=== PATIENT | female | born 1965 | race American Indian/Alaskan Native ===

== ENCOUNTER 2018-02-26 22:11 | Emergency (ER) | payer SELFPAY ==
--- NOTE | 2018-02-27 03:50 | Emergency Department Report ---
ED General Adult HPI - General Chief complaint: Skin/Abscess/Foreign Body Stated complaint: SWELLING LEFT SIDE FACE Time Seen by Provider: 02/27/18 03:07 Source: patient Mode of arrival: Ambulatory Limitations: No Limitations - History of Present Illness Initial comments: 52-year-old -[place] female comes in today stating that she is having swelling to her left side of her face that occurred about an hour prior to arrival. Patient reports she was using swimmer's eardrops. She reports that it feels painful burning intermittent on the left side. Patient reports she vomited 1 yesterday she is nauseated burning when drinking or swallowing. -: hour(s) Location: face Severity scale (0 -10): 8 Quality: burning Consistency: intermittent Improves with: none Worsens with: other (swallowing drinking) Associated Symptoms: fever/chills, nausea/vomiting Treatments Prior to Arrival: none - Related Data Previous Rx's Medication Instructions Recorded Last Taken Type HYDROcodone/APAP 7.5-325 [[place] 1 each PO Q8HR PRN #15 tablet 12/14/15 Unknown Rx 7.5/325] ALBUTEROL Inhaler [Proair] 2 puff IH QID PRN #1 inhalation 10/05/16 Unknown Rx Levofloxacin [Levaquin] 750 mg PO QDAY #9 tablet 10/05/16 Unknown Rx guaiFENesin/CODEINE [Robitussin AC] 10 ml PO QHS PRN #70 oral.liqd 10/05/16 Unknown Rx predniSONE [Deltasone] 50 mg PO QDAY #5 tab 10/05/16 Unknown Rx HYDROcodone/APAP 5-325 [[place] 1 each PO Q6HR PRN #8 tablet 10/10/16 Unknown Rx 5/325] Ibuprofen [Motrin 800 MG tab] 800 mg PO Q8HR #15 tablet 02/27/18 Unknown Rx Allergies Allergy/AdvReac Type Severity Reaction Status Date / Time Penicillins Allergy Rash Verified 10/10/16 12:00 ED Review of Systems ROS: Stated complaint: SWELLING LEFT SIDE FACE Other details as noted in HPI Constitutional: fever (2 days ago) Eyes: denies: eye pain, eye discharge, vision change ENT: ear pain (2 days ago ) Respiratory: denies: cough, shortness of breath, wheezing Cardiovascular: denies: chest pain, palpitations Endocrine: no symptoms reported Gastrointestinal: nausea, vomiting (times one). denies: abdominal pain, diarrhea Genitourinary: denies: urgency, dysuria, discharge Musculoskeletal: denies: back pain, joint swelling, arthralgia Skin: denies: rash, lesions Neurological: denies: headache, weakness, paresthesias Psychiatric: denies: anxiety, depression Hematological/Lymphatic: denies: easy bleeding, easy bruising ED Past Medical Hx - Past Medical History Previous Medical History?: Yes Hx Hypertension: Yes Hx Congestive Heart Failure: No Hx Diabetes: Yes Hx Seizures: Yes Hx Asthma: Yes Hx COPD: No Additional medical history: ?multiple sclerosis - Surgical History Past Surgical History?: Yes Hx Appendectomy: Yes Additional Surgical History: 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 Hysterectomy, - Social History Smoking Status: Current Every Day Smoker Substance Use Type: Alcohol - Medications Home Medications: Home Medications Medication Instructions Recorded Confirmed Last Taken Type HYDROcodone/APAP 7.5-325 [[place] 1 each PO Q8HR PRN #15 tablet 12/14/15 Unknown Rx 7.5/325] ALBUTEROL Inhaler [Proair] 2 puff IH QID PRN #1 inhalation 10/05/16 Unknown Rx Levofloxacin [Levaquin] 750 mg PO QDAY #9 tablet 10/05/16 Unknown Rx guaiFENesin/CODEINE [Robitussin AC] 10 ml PO QHS PRN #70 oral.liqd 10/05/16 Unknown Rx predniSONE [Deltasone] 50 mg PO QDAY #5 tab 10/05/16 Unknown Rx HYDROcodone/APAP 5-325 [[place] 1 each PO Q6HR PRN #8 tablet 10/10/16 Unknown Rx 5/325] Ibuprofen [Motrin 800 MG tab] 800 mg PO Q8HR #15 tablet 02/27/18 Unknown Rx ED Physical Exam - General Limitations: No Limitations General appearance: alert, in no apparent distress - Head Head exam: Present: atraumatic, normocephalic - Eye Eye exam: Present: normal appearance - ENT ENT exam: Present: mucous membranes moist, TM's normal bilaterally, normal external ear exam - Neck Neck exam: Present: normal inspection, full ROM. Absent: tenderness, lymphadenopathy - Respiratory Respiratory exam: Present: normal lung sounds bilaterally. Absent: respiratory distress - Cardiovascular Cardiovascular Exam: Present: regular rate, normal rhythm. Absent: systolic murmur, diastolic murmur, rubs, gallop - GI/Abdominal GI/Abdominal exam: Present: soft, normal bowel sounds - Extremities Exam Extremities exam: Present: normal inspection - Back Exam Back exam: Present: normal inspection - Neurological Exam Neurological exam: Present: alert, oriented X3 - Psychiatric Psychiatric exam: Present: normal affect, normal mood - Skin Skin exam: Present: warm, dry, intact, normal color. Absent: rash ED Course Vital Signs 02/26/18 02/27/18 22:13 04:15 Temperature 98.7 F 98.9 F Pulse Rate 92 H 74 Respiratory 18 18 Rate Blood Pressure 161/83 Blood Pressure 153/78 [Right] O2 Sat by Pulse 95 99 Oximetry ED Medical Decision Making - Medical Decision Making Patient's been evaluated with his provider fast track. I do not appreciate any lymphadenopathy on the left side left ear but on normal limits no signs of infection. No cervical lymphadenopathy tonsillary lymphadenopathy there is no open wounds in the mouth there is no tooth decay no swollen gingiva patient is afebrile we will treat patient with ibuprofen and have her follow up with [facility] if symptoms persist or gets worse. Critical care attestation.: If time is entered above; I have spent that time in minutes in the direct care of this critically ill patient, excluding procedure time. ED Disposition Clinical Impression: Swelling of left side of face Disposition: DC-01 TO HOME OR SELFCARE Is pt being admited?: No Does the pt Need Aspirin: No Condition: Stable Additional Instructions: Please take ibuprofen as prescribed this will help with any swelling or pain. If symptoms persist or gets worse these follow-up with [facility] they are internal medicine and primary care. He can also follow up with ear nose and throat. I will list them below. Prescriptions: Ibuprofen [Motrin 800 MG tab] 800 mg PO Q8HR #15 tablet Referrals: JAN SCHROEDER MD [Primary Care Provider] - 3-5 Days [facility] [Provider Group] - 3-5 Days CORTNEY SHAW MD [Staff Physician] - 3-5 Days GEENA LANDAVERDE MD [Staff Physician] - 3-5 Days BERNARDO TURNER MD [Staff Physician] - 3-5 Days Forms: Work/School Release Form(ED)
[2018-02-27] MEDS ORDERED: MOTRIN PO ONE (03:57)
[2018-02-27 04:17] VITALS: BP 153/78
== END 2018-02-27 04:15 | disposition home or self-care (01) ==
LOC: ED 22:11
DX: R22.0 Localized swelling, mass and lump, head (principal); I10 Essential (primary) hypertension; E11.9 Type 2 diabetes mellitus without complications; J45.909 Unspecified asthma, uncomplicated; F17.200 Nicotine dependence, unspecified, uncomplicated; Z90.49 Acquired absence of other specified parts of digestive tract; Z88.0 Allergy status to penicillin
CPT/HCPCS: 99282